=== PATIENT | female | born 1985 | race American Indian/Alaskan Native ===

== ENCOUNTER 2018-03-29 00:18 | Emergency (ER) | payer MEDICAID ==
[2018-03-29 00:55] VITALS: BP 151/94
[2018-03-29] MEDS ORDERED: NACL 0.9% 1000 ML 1,000 ML IV ONE (01:07)
[2018-03-29 01:38] LABS: Bacteria,Urine 3+ /HPF (Negative); Bilirubin,Urine NEG (Negative); Blood,Urine MOD (Negative); Color,Urine Yellow (Yellow); Mucus,Urine 2+ /HPF; Urobilinogen,Urine < 2.0 mg/dL (<2.0)
[2018-03-29 01:55] LABS: Basophils % (Auto) 0.4 % (0.0-1.8); Eosinophils # (Auto) 0.2 K/mm3 (0.0-0.4); Eosinophils % (Auto) 1.8 % (0.0-4.3); Hematocrit 38.1 % (30.3-42.9); Hemoglobin 12.3 gm/dl (10.1-14.3); Lymphocytes # (Auto) 4.2 K/mm3 (1.2-5.4); Lymphocytes % (Auto) 37.9 % (13.4-35.0); Mean Corpuscular HGB Conc 32 % (30-34); Mean Corpuscular Volume 79 fl (79-97); Monocytes # (Auto) 0.8 K/mm3 (0.0-0.8); Monocytes % (Auto) 7.4 % (0.0-7.3); Platelet Count 417 K/mm3 (140-440); Red Cell Distribution Width 13.9 % (13.2-15.2)
[2018-03-29 01:57] LABS: Mean Corpuscular Hemoglobin 26 pg (28-32)
[2018-03-29 02:25] LABS: Alanine Aminotransferase 17 units/L (7-56); Albumin 3.9 g/dL (3.9-5); BUN/Creatinine Ratio 16; Blood Urea Nitrogen 13 mg/dL (7-17); Calcium 9.4 mg/dL (8.4-10.2); Hemolysis Index 61; Lipase 33 units/L (13-60)
--- NOTE | 2018-03-29 02:31 | Emergency Department Report ---
ED Female HPI - General Chief complaint: Abdominal Pain Stated complaint: SHARP LOWER ABD PAIN, BACK PAIN Time Seen by Provider: 03/29/18 02:27 Source: patient Mode of arrival: Ambulatory Limitations: No Limitations - History of Present Illness Initial comments: 33-year-old female comes in reporting sharp pain vaginal and pelvic 1 month as intermittent. She complains of back pain that she's had since August. Patient denies any vaginal discharge no vaginal bleeding or dysuria. She reports that she's taken aspirin for pain. She reports has not helped. Patient denies any fever chills or nausea no vomiting. -: month(s) (2) Location: suprapubic Severity scale (0 -10): 5 Quality: sharp Consistency: intermittent Improves with: none Worsens with: none Are you Now?: No Associated Symptoms: denies other symptoms - Related Data Sexually active: Yes Previous Rx's Medication Instructions Recorded Last Taken Type Ibuprofen [Motrin 800 MG tab] 800 mg PO Q8HR PRN #15 tablet 03/29/18 Unknown Rx Nitrofurantoin Monohyd/M-Cryst 100 mg PO BID #14 capsule 03/29/18 Unknown Rx [Macrobid 100 mg Capsule] Allergies Allergy/AdvReac Type Severity Reaction Status Date / Time No Known Allergies Allergy Unverified 03/29/18 01:07 ED Review of Systems ROS: Stated complaint: SHARP LOWER ABD PAIN, BACK PAIN Other details as noted in HPI Comment: All other systems reviewed and negative Constitutional: denies: chills, fever Gastrointestinal: abdominal pain (suprapubic). denies: nausea, vomiting, diarrhea, constipation Genitourinary: denies: urgency, dysuria, discharge Musculoskeletal: back pain (since August) Skin: denies: rash, lesions Neurological: denies: headache, weakness, paresthesias Psychiatric: denies: anxiety, depression Hematological/Lymphatic: denies: easy bleeding, easy bruising ED Past Medical Hx - Past Medical History Additional medical history: Morbid Obesity - Surgical History Additional Surgical History: Hernia repair, Tonsillitis, - Social History Smoking Status: Never Smoker Substance Use Type: None - Medications Home Medications: Home Medications Medication Instructions Recorded Confirmed Last Taken Type Ibuprofen [Motrin 800 MG tab] 800 mg PO Q8HR PRN #15 tablet 03/29/18 Unknown Rx Nitrofurantoin Monohyd/M-Cryst 100 mg PO BID #14 capsule 03/29/18 Unknown Rx [Macrobid 100 mg Capsule] ED Physical Exam - General Limitations: No Limitations General appearance: alert, in no apparent distress, other (nontoxic) - Head Head exam: Present: atraumatic, normocephalic ED Course Vital Signs 03/29/18 03/29/18 00:54 00:59 Temperature 98.9 F 98.9 F Pulse Rate 70 68 Respiratory 18 18 Rate Blood Pressure 151/94 151/94 O2 Sat by Pulse 100 100 Oximetry ED Medical Decision Making - Lab Data Result diagrams: 03/29/18 01:48 03/29/18 01:48 - Medical Decision Making Patient has been evaluated by this provider fast track. Patient comes in with chronic pain has been going on for months. Urinalysis was ordered and shows patient has a urinary tract infection We'll treat patient with Macrobid and ibuprofen for pain and infection. Advised patient to follow-up with [facility]. Critical care attestation.: If time is entered above; I have spent that time in minutes in the direct care of this critically ill patient, excluding procedure time. ED Disposition Clinical Impression: UTI (urinary tract infection) Qualifiers: Urinary tract infection type: acute cystitis Hematuria presence: with hematuria Qualified Code(s): N30.01 - Acute cystitis with hematuria Disposition: TO HOME OR SELFCARE Is pt being admited?: No Does the pt Need Aspirin: No Condition: Stable Instructions: Abdominal Pain (ED), Urinary Tract Infection in Women (ED) Additional Instructions: Complete antibiotics as prescribed. Pain medication as needed. Follow-up with [facility]. Prescriptions: Ibuprofen [Motrin 800 MG tab] 800 mg PO Q8HR PRN #15 tablet PRN Reason: Pain , Severe (7-10) Nitrofurantoin Monohyd/M-Cryst [Macrobid 100 mg Capsule] 100 mg PO BID #14 capsule Referrals: PRIMARY CARE [Primary Care Provider] - 3-5 Days [facility] [Provider Group] - 3-5 Days [facility] [Provider Group] - 3-5 Days [facility] [Provider Group] - 3-5 Days [facility] [Provider Group[facility] - 3-5 Days
== END 2018-03-29 02:43 | disposition home or self-care (01) ==
LOC: EDBD → ED 00:18
DX: N30.01 Acute cystitis with hematuria (principal); E66.01 Morbid (severe) obesity due to excess calories
CPT/HCPCS: 36415; 80053; 81001; 83690; 84703; 85025; 99283

== ENCOUNTER 2021-12-02 22:22 | Emergency (ER) | payer MEDICAID ==
[2021-12-02 23:41] VITALS: BP 150/95
[2021-12-03 00:20] LABS: HCG Qualitative,Urine Positive (Negative)
== END 2021-12-03 02:40 | disposition left against medical advice (07) ==
LOC: ED 22:22
DX: H92.09 Otalgia, unspecified ear (principal); Z53.21 Procedure and treatment not carried out due to patient leaving prior to being seen by health care provider
CPT/HCPCS: 81025